=== PATIENT | female | born 1940 | race Caucasian/White ===

== ENCOUNTER 2017-05-11 14:32 | Emergency (ER) | payer MEDICARE ==
[2017-05-11 15:18] VITALS: BP 134/83
[2017-05-11] MEDS ORDERED: Ketorolac 60 MG/2 ML SDV IM ONE (16:12)
--- NOTE | 2017-05-11 16:16 | EDM.PDOC ---
ED HPI GENERAL MEDICAL PROBLEM - General Chief Complaint: Lower Extremity Injury/Pain Stated Complaint: RIGHT HIP PAIN Time Seen by Provider: 05/11/17 16:06 Source of Information: Reports: Patient, RN Notes Reviewed History Limitations: Reports: No Limitations - History of Present Illness INITIAL COMMENTS - FREE TEXT/NARRATIVE: 76-year-old female presents emergency department day complaint of right hip pain , she states she has had hip pain for sometime last year she received a Toradol injection and provided good relief for her, she has a primary care provider in [facility] Right Hip Pain Score (Numeric/FACES): 8 - Related Data Allergies Allergy/AdvReac Type Severity Reaction Status Date / Time No Known Allergies Allergy Verified 05/11/17 15:00 Home Meds: Home Meds Ibuprofen 400 mg PO Q4HR PRN 04/29/16 [History] Insulin Glarg,Human.Rec.Analog [LantUS Solostar] 52 unit SQ BID 04/29/16 [ History] Omeprazole Magnesium [Prilosec Otc] 20 mg PO ACBREAKFAST 04/29/16 [History] Rosuvastatin [Crestor] 40 mg PO BEDTIME 04/29/16 [History] amLODIPine [Norvasc] 2.5 mg PO DAILY 04/29/16 [History] metFORMIN [Glucophage] 500 mg PO BIDMEALS 04/29/16 [History] Past Medical History HEENT History: Reports: Impaired Vision Cardiovascular History: Reports: High Cholesterol, Hypertension Gastrointestinal History: Reports: GERD Genitourinary History: Reports: Other (See Below) Other Genitourinary History: botox injection in bladder [employer] History: Reports: Musculoskeletal History: Reports: Osteoarthritis, Other (See Below) Other Musculoskeletal History: bursitis Psychiatric History: Reports: Anxiety, Depression Endocrine/Metabolic History: Reports: Diabetes, Type II Oncologic (Cancer) History: Reports: Breast - Infectious Disease History Infectious Disease History: Reports: Chicken Pox - Past Surgical History Female Surgical History: Reports: Other (See Below) Other Female Surgeries/Procedures: l lumpectomy Social & Family History - Tobacco Use Smoking Status *Q: Never Smoker Second Hand Smoke Exposure: No - Caffeine Use Caffeine Use: Reports: Coffee, Soda, Tea - Recreational Drug Use Recreational Drug Use: No Review of Systems - Review of Systems Review Of Systems: See Below Respiratory: Reports: No Symptoms Cardiovascular: Reports: No Symptoms GI/Abdominal: Reports: No Symptoms Musculoskeletal: Reports: Joint Pain (Right hip pain) ED EXAM, GENERAL - Physical Exam Exam: See Below Free Text/Narrative:: Examination of the right hip I don't appreciate any erythema there is no edema over the area she is point tender over the greater trochanter and she has pain with both flexion and extension and internal and external rotation Exam Limited By: No Limitations General Appearance: Alert, WD/WN, No Apparent Distress Course - Vital Signs Last Recorded V/S: Last Vital Signs Temp 97.6 F 05/11/17 15:17 Pulse 83 05/11/17 15:17 Resp 16 05/11/17 15:17 BP 134/83 05/11/17 15:17 Pulse Ox 95 05/11/17 15:17 - Orders/Labs/Meds Orders: Active Orders 24 hr Category Date Time Status Hip Min 2V Bi [CR] Stat Exams 05/11/17 16:12 Taken Meds: Medications Discontinued Medications Generic Name Dose Route Start Last Admin Trade Name Eugene PRN Reason Stop Dose Admin Ketorolac Tromethamine 60 mg 05/11/17 16:12 05/11/17 16:34 Toradol IM 05/11/17 16:13 60 mg ONETIME ONE Administration Departure - Departure Time of Disposition: 17:52 Disposition: Home, Self-Care 01 Condition: Good Clinical Impression: Bilateral hip pain - Discharge Information Forms: ED Department Discharge Additional Instructions: Use ibuprofen for baseline pain control, use hydrocodone for breakthrough pain, the orthopedic clinic will call you for an appointment - My Orders Last 24 Hours: My Active Orders 05/11/17 16:12 Hip Min 2V Bi [CR] Stat - Assessment/Plan Last 24 Hours: My Active Orders 05/11/17 16:12 Hip Min 2V Bi [CR] Stat Plan: Assessment Acuity = acute Site and laterality = bilateral hip pain Etiology = probable degenerative joint disease Manifestations = none Location of injury = Home Lab values = x-rays show some joint space narrowing no fractures official read radiology is pending Plan She had some relief with Toradol injection [facility] set her up to see orthopedics for further evaluation possible injection Patient was in agreement with the plan all questions were answered, they were instructed to return to the emergency department or call for worsening symptoms. This note was dictated using [employer] voice recognition software please call with any questions.
--- NOTE | 2017-05-12 08:54 | CR ---
Hip Min 2V Bi INDICATION: pain FINDINGS: Moderate right and advanced left degenerative narrowing and hypertrophic change of the hip s. Degenerative changes pubic symphysis. No acute fracture.
== END 2017-05-11 18:05 | disposition home or self-care (01) ==
LOC: JP.ED 14:32
DX: M25.551 Pain in right hip (principal); M25.552 Pain in left hip; I10 Essential (primary) hypertension; E78.00 Pure hypercholesterolemia, unspecified; K21.9 Gastro-esophageal reflux disease without esophagitis; M19.90 Unspecified osteoarthritis, unspecified site; F41.9 Anxiety disorder, unspecified; F32.9 Major depressive disorder, single episode, unspecified; E11.9 Type 2 diabetes mellitus without complications; Z98.890 Other specified postprocedural states; Z79.4 Long term (current) use of insulin; Z79.84 Long term (current) use of oral hypoglycemic drugs
CPT/HCPCS: 73521; 96372; 99284; J1885; 99283